=== PATIENT | female | born 1965 | race Caucasian/White ===

== ENCOUNTER 2023-06-12 14:45 | Emergency (ER) | payer OTHER, SELFPAY ==
[2023-06-12 14:48] VITALS: BP 146/98; BMI 24.4
[2023-06-12] MEDS: MOTRIN 400 MG PO (16:15)
[2023-06-12] MEDS: TYLENOL 500 MG PO (16:15)
--- NOTE | 2023-06-12 16:15 | ED.GENMED ---
History of Present Illness
General
Chief Complaint: Headache
Source: patient
Exam Limitations: none
Time Seen by Provider: 06/12/23 14:53
Nursing documentation reviewed up to this point in time: agreed with
Travel History
Have you had any contact with someone who has COVID-19?: No
Do you have any symptoms of coronavirus? Fever > 100 degrees, chills, cough, shortness of breath, sore throat, loss of taste or smell, muscle aches, or headache?: No
History of Present Illness
History of Present Illness:
58-year-old female with remote history of daily headaches but has not had any for years until about 3 months ago she started having headaches off and on again. Initially it was 1 every few weeks now it is once a week and sometimes daily. They are
usually frontal in her forehead or maxillary sinuses but can also be in the back of her head at the base of her skull. Yesterday while cleaning her bathroom she looked up at the ceiling and got dizzy for about a minute. She woke up at 5 AM today
with a headache, the bathroom she felt imbalanced and the room was spinning. This episode lasted a few minutes, she eventually fell asleep and woke again at 730 this morning with room spinning dizziness but not as bad as earlier. She has had
dizziness off and on since sometimes mild, sometimes worse. At noon today her dizziness became associated with nausea. She states it is definitely related to movement. If she moves her head [id number], if she bends or if she gets up too
quickly the dizziness gets worse. She denies change in vision, no recent head injury, denies vomiting.
Sent here from for head CT.
Past History
Past History
ED Past Medical History: None
ED Past Surgical History: Orthopedic
Social History
Tobacco: Non-smoker
Alcohol: None
Personal:
Living: with family
Employment: Employed
Review of Systems
Review of Systems
Allergies reviewed?: Yes
All Other Systems: ROS reviewed and negative except as documented in HPI and ROS
Constitutional: Denies fatigue
Respiratory: Denies trouble breathing
Cardiac: Denies chest pain
ABD/GI: Reports nausea; Denies abdominal pain or vomiting
: Denies dysuria or difficulty voiding
Musculoskeletal: Reports no symptoms
Skin: Reports no symptoms
Neurological: Reports dizzy and headache; Denies weakness or numbness
Phy Exam
Physical Exam
Physical Exam:
GENERAL: No acute distress. A&Ox3.
CONSTITUTIONAL: Afebrile.
EYES: PERRL, conjunctivae normal, no nystagmus
Neck: Supple
ENMT: moist mucus membranes, Pharynx nl
RESPIRATORY: Regular respirations, nonlabored, lungs clear.
CARDIOVASCULAR: Regular rate and rhythm, no murmurs, no rubs.
GI: Soft, nontender, normal BS
MUSCULOSKELETAL: Moves with ease. Well perfused.
SKIN: Warm, dry, pink
PSYCH: Normal mood and affect. Well kept, interactive and appropriate
NEUROLOGIC: Awake, alert and oriented. CN 2-12 intact. Finger to nose intact. Ambulates with normal gait. No focal neurological deficits
Course
Orders/Labs/Results
Orders:
Orders
06/12/23 15:12
CT Head W/o Iv Contrast Urgent
Comment:
Reason For Exam: headache for several months
06/12/23 16:09
Acetaminophen [Tylenol] 500 mg PO NOW STA
Ibuprofen [Motrin] 400 mg PO NOW STA
06/12/23 17:49
Meclizine [Antivert] 25 mg PO NOW STA
Vital Signs
Initial and Last Documented VS:
Initial Vital Signs
Temp Pulse Resp BP Pulse Ox
98.5 F 88 16 146/98 99
06/12/23 14:48 06/12/23 14:48 06/12/23 14:48 06/12/23 14:48 06/12/23 14:48
Last Documented Vital Signs
Temp Pulse Resp BP Pulse Ox
98.5 F 71 16 126/79 98
06/12/23 14:48 06/12/23 18:04 06/12/23 18:04 06/12/23 18:04 06/12/23 18:04
MDM/Problems Addressed
Differential Diagnosis Includes:
BPPV, sinus headache, tension H/A, migrainous dizziness, brain tumor
MDM/Problems Addressed:
58-year-old female with remote history of daily headaches but has not had any for years until about 3 months ago she started having headaches off and on again. Initially it was 1 every few weeks now it is once a week and sometimes daily. They are
usually frontal in her forehead or maxillary sinuses but can also be in the back of her head at the base of her skull. Yesterday while cleaning her bathroom she looked up at the ceiling and got dizzy for about a minute. She woke up at 5 AM today
with a headache, the bathroom she felt imbalanced and the room was spinning. This episode lasted a few minutes, she eventually fell asleep and woke again at 730 this morning with room spinning dizziness but not as bad as earlier. She has had
dizziness off and on since sometimes mild, sometimes worse. At noon today her dizziness became associated with nausea. She states it is definitely related to movement. If she moves her head [id number], if she bends or if she gets up too
quickly the dizziness gets worse. She denies change in vision, no recent head injury, denies vomiting.
Sent here by for head CT
Pt in NAD, pleasant, conversive
Neuro exam is normal
5:[address] is normal
She is asymptomatic for dizziness at this time and during this visit
Patient reassured states headache is improving but still there 'a little' after Tylenol and ibuprofen
Plan: Meclizine, Referred to neurology, Pamphlet given and referral to [facility]
Upon DC, pt ambulated out with normal gait
*Critical Care Note
Total Time (30-74mins, 75-104mins- exclusive of procedures): Not Applicable
ED Attending Note
-
Portions of this chart may have been created with voice recognition software.� Occasional wrong word or��sound alike� substitutions may have occurred due to the inherent limitations of voice recognition software.
Discharge Plan
Departure
Patient Disposition: Home (Routine Discharge)
Date of Disposition: 06/12/23
Time of Disposition: 17:50
Patient with high blood pressure during this ER visit?: No
Condition: Good
Discharge Problem:
Dizzinesses, Headache
Instructions: Vertigo (a Type of Dizziness) (DC), Headache, Adult (DC), Vestibular Exercises
Referrals:
Malorie Velasco, DO [Active] - Next open appointment
UNKNOWN - PT DOES,NOT KNOW [Family Provider] -
Activity Restrictions/Additional Instructions:
As we discussed, take ibuprofen 600 mg with Tylenol 1000 mg 3 times a day as needed for headache
Call the neurology office of Dr. Velasco and make next available appointment as it may be a while before you can get in
Call the vestibular rehab center and make an appointment for follow-up. Take the prescription with you that I gave you for vestibular rehab.
I sent a prescription to your pharmacy for meclizine or Antivert which sometimes helps with BPPV which is a benign vertigo
Interventions
Interventions:
*Risk Screen - Suicide Last Done: 06/12/23 14:48
*General Assessment Last Done: 06/12/23 15:12
*Neglect/Abuse Screening Last Done: 06/12/23 14:48
ED- Fall Risk Assessment Last Done: 06/12/23 14:48
*ED COVID-19 Vaccine History Last Done: 06/12/23 14:48
*Nursing Disposition Last Done: 06/12/23 18:04
ED- Neurological Assessment Last Done: 06/12/23 15:12
Discharge Date and Time
Discharge Date/Time: 06/12/23 18:05
Print Language: URDU
[2023-06-12 16:48] VITALS: BP 123/94
[2023-06-12] MEDS: ANTIVERT 25 MG PO (17:55)
[2023-06-12 18:04] VITALS: BP 126/79
== END 2023-06-12 18:05 | disposition home or self-care (01) ==
LOC: EMR 14:45
PROVIDERS: EMERGENCY PHYSICIAN Emergency Medicine
DX: R42 Dizziness and giddiness (principal); R51.9 Headache, unspecified; R11.0 Nausea
CPT/HCPCS: 99284; 70450